=== PATIENT | male | born 2000 | race Hispanic/Latino ===

== ENCOUNTER 2024-06-10 10:22 | Emergency (ER) | payer SELFPAY ==
[~2024-06-10] VITALS: Ht 188 cm; Wt 131.5 kg
--- NOTE | 2024-06-10 10:43 | ERN ---
ED Note History of Present Illness Stated Complaint: CP, REGULO COMPL Chief Complaint: Cough Time Seen by MD: 10:24 Dictation: History of present illness: 24-year-old male with past medical history of diabetes on metformin presented to ED with complaints of cough for past 5 days. Started with runny nose 5 days back associated with cough with expectoration of green sputum. He experienced central chest pain radiating to the right lower ribs region associated with coughing in the beginning-but denies chest pain right now. He also complains of sore throat and 1 episode of vomiting today. He denies shortness of breath, nausea, fever , chest pain, abdominal pain, change in bowel or bladder habits. At the time of presentation he is hemodynamically stable Allergies: Coded Allergies: No Known Allergies (Unverified Allergy, Unknown, 06/10/24) Home Meds Active Scripts Loratadine (Loratadine) 10 Mg Tablet, 1 TAB PO DAILY for allergy symptoms for 10 Days, #10 TAB 0 Refills Prov:DAILY ELDER MD 06/10/24 Fluticasone Propionate (Flonase Nasal [place]) 50 Mcg/Actuation [place], 1 SPRAY NS DAILY PRN for each nostril, #16 GM 0 Refills Prov:DAILY ELDER MD 06/10/24 Past Medical History Past Medical History: No Pertinent History, Diabetes-Type II Surgical History: Other Review of System Dictation REVIEW OF SYSTEMS Positive for cough, sore throat CONSTITUTIONAL: Denies fevers, chills, or night sweats. No unintentional weight loss reported. ENT: No hearing loss, otalgia, otorrhea, rhinitis, rhinorrhea, hoarseness, or sore throat. CARDIOVASCULAR: Denies any exertional angina, dyspnea on exertion, orthopnea, paroxysmal nocturnal dyspnea, palpitations claudication. PULMONARY: Denies any shortness of breath, cough, phlegm / sputum, hemoptysis, pleuritic chest pain. SLEEP: Denies morning headaches, daytime somnolence or napping. Denies difficulty falling asleep, staying asleep, waking from sleep. Denies knowledge of snoring. GASTROINTESTINAL: Denies any type of dysphagia to either liquids or solids. Denies nausea, vomiting, abdominal pain, diarrhea, constipation, blood in stools . NEUROLOGICAL: Denies headache, motor weakness, sensory deficit, vertigo / spinning sensation, gait abnormalities, or tremors. GENITOURINARY: Denies frequency, urgency, nocturia, hematuria or incontinence, low urinary stream, straining to void, urinary intermittency or hesitancy ENDOCRINOLOGY: Denies polyuria, polydipsia, polyphagia or heat / cold intolerance. HEMATOLOGY: Denies thrombophilia / previous clots, or coagulopathy / bleeding disorders. ONCOLOGIC: Denies personal history of malignancy. DERMATOLOGIC: Denies rashes or pruritus. PSYCHIATRIC: Denies any suicidal or homicidal ideation. Denies hallucinations. Initial Vital Sign VS Vital Signs Date Time Temp Pulse Resp B/P (MAP) Pulse Ox O2 Delivery O2 Flow Rate FiO2 06/10/24 10:25 98.4 100 20 125/84 98 0 Physical Exam Dictation PHYSICAL EXAM GENERAL APPEARANCE: Obese body habitus . Awake and alert. Oriented to time, place and person. No acute cardiopulmonary distress. HEENT: Head normocephalic , atraumatic. Sclera anicteric . Pupils are round and reactive. Extraocular movements intact . No conjunctival injection. No nasal congestion. Posterior oropharynx erythematous NECK: Supple. No JVD. No thyromegaly. No submental, submandibular, pre-/postauricular, occipital or supraclavicular lymphadenopathy. No carotid bruits. CHEST: Normal chest expansion. No Telemetry. LUNGS: Coarse breath sounds appreciated while CARDIOVASCULAR: Regular rate and rhythm. S1 and S2 normal. No rubs, murmurs or gallops. ABDOMEN: Soft, nontender, and nondistended. There is no rebound tenderness, voluntary guarding, or rigidity. No hepatosplenomegaly. Bowel sounds normal in all four quadrants . NEUROLOGICAL: Cranial nerves II-XII grossly intact. Motor is 5/5 in bilateral upper and lower extremities . No sensory deficits. EXTREMITIES: No edema, No cyanosis , No clubbing. Good capillary refill. SKIN: No skin breakdown. No rashes or lesions . PSYCHIATRY: Normal affect .No auditory or visual hallucinations. Normal speech. No dysarthria. Results (Laboratory/Radiology) Laboratory/Radiology Laboratory Tests Test 06/10/24 11:04 06/10/24 11:06 White Blood Count 8.9 K/uL (4.8-10.8) Red Blood Count 5.14 MIL/uL (4.50-6.20) Hemoglobin 14.4 g/dL (14.0-18.0) Hematocrit 42.6 % (42-54) Mean Corpuscular Volume 82.9 fL (79-99) Mean Corpuscular Hemoglobin 28.0 pg (27.0-33.0) Mean Corpuscular Hemoglobin Concent 33.8 g/dL (32.0-36.0) Red Cell Distribution Width 11.5 % (11.0-15.5) Platelet Count 216 K/uL (130-400) Mean Platelet Volume 12.0 fL (7.5-10.5) H Immature Granulocyte % (Auto) 0.6 % (0-1) Neutrophils (%) (Auto) 64.2 % (40.0-77.0) Lymphocytes (%) (Auto) 22.1 % (21.0-51.0) Monocytes (%) (Auto) 11.9 % (3.0-13.0) Eosinophils (%) (Auto) 0.9 % (0.0-8.0) Basophils (%) (Auto) 0.3 % (0.0-5.0) Neutrophils # (Auto) 5.7 K/uL (1.8-7.7) Lymphocytes # (Auto) 2.0 K/uL (1.0-4.8) Monocytes # (Auto) 1.1 K/uL (0.1-1.0) H Eosinophils # (Auto) 0.08 K/uL (0.00-0.70) Basophils # (Auto) 0.03 K/uL (0.00-0.20) Absolute Immature Granulocyte (auto 0.05 K/uL (0-1) Nucleated Red Blood Cells 0.0 % (0.0-0.19) Sodium Level 131 mmol/L (136-145) L Potassium Level 3.5 mmol/L (3.5-5.1) Chloride Level 93 mmol/L (101-111) L Carbon Dioxide Level 31 mmol/L (21-32) Blood Urea Nitrogen 9 mg/dL (7-18) Creatinine 0.8 mg/dL (0.5-1.3) Glomerular Filtration Rate Calc 126 mL/min (>90) Random Glucose 409 mg/dL (70-105) *H Total Calcium 9.3 mg/dL (8.5-10.1) Influenza Type A Antigen Negative For Type A Influenza Type B Antigen Negative For Type B Group A Streptococcus Rapid negative (NEGATIVE) X-RAY Comment: PROCEDURE: CXR1VW - CHEST 1VW PORTABLE CHEST RADIOGRAPH INDICATION: cough x 5 days COMPARISON: 03/26/2010 FINDINGS: Shallow inspiration. Heart size is normal. The pulmonary vascularity and lizzy appear normal. No abnormal pulmonary parenchymal opacity or consolidation identified. No significant pleural effusion noted. No pneumothorax detected. IMPRESSION: Shallow inspiration without radiographic evidence for any acute cardiopulmonary process. DICTATED BY: LARA WAHL MD DATE: 06/10/24 1141 ELECTRONICALLY SIGNED BY: LARA WAHL MD DATE: 06/10/24 1144 ED Course ED Course Orders Procedure Category Date Status Time Chest 1vw RAD 06/10/24 Resulted 10:35 Cbc With Differential LAB 06/10/24 Complete 10:35 Dexamethasone 4mg/Ml PHA 06/10/24 Complete 1ml Vial (Dexametha 11:00 Basic Metabolic Panel LAB 06/10/24 Complete 10:35 Influenza Type A & B, LAB 06/10/24 Complete Rapid 10:43 Rapid (Group A Strep) LAB 06/10/24 Complete 10:43 Insulin Regular, PHA 06/10/24 Verified Human 3ml (Humulin R 13:30 Current Medications Medications (Trade) Dose Ordered Sig/Cristian Route PRN Reason Start Time Stop Time Status Last Admin Dose Admin Dexamethasone Sodium Phosphate (dexaMETHasone 4MG/ML 1ML VIAL) 4 mg ONCE ONCE IM 06/10/24 11:00 06/10/24 11:01 DC 06/10/24 11:01 Vital Signs Date Time Temp Pulse Resp B/P (MAP) Pulse Ox O2 Delivery O2 Flow Rate FiO2 06/10/24 10:25 98.4 100 20 125/84 98 0 Medical Decision Making MDM Differential diagnosis : Postviral bronchitis, acute bronchitis, pneumonia, Rationale: Tests considered and ordered secondary to shared decision making include: I will re-evaluate the patient after treatment and diagnostic exams have returned to determine whether they require further testing, can be safely discharged home, or need admission for further treatment and evaluation. Given the social determinants of health affecting care, including literacy, access to medical care, prescription drug management, and [id number] drugs, I will ensure that treatment plans are tailored accordingly. There are no social concerns with this patient. Risk of complication and/or morbidity or mortality of patient management: None Need for hospitalization: Patient does not meet criteria for hospitalization. Need for emergency major/minor surgery: No Prescription drug management Prescriptions will include symptomatic care Medications-Per medication reconciliation Previous outside records reviewed: Old ER visits. Patient's prior external medical records from other ER visits were reviewed by me as indicated. Prior testing and results from previous visits were reviewed. Prior tests were taken into account with medical decision making and resource utilization, independent historian/historians were used to obtain complete medical history. I independently interpreted the test that were performed, results were reviewed by me and considered findings on radiology. Medical management and examination interpretation discussions was done by me with other qualified healthcare professionals as indicated for the patient's care. Revaluation: Labs including CBC and BmP was unremarkable. Chest x-ray showed right-sided peribronchial markings. Oropharynx is congested-most likely postnasal drip causing cough. We will discharge him home on antihistamines. His random blood sugar was 409-uncontrolled diabetes mellitus. He was treated with 5 units of insulin is 1 bolus dose. He is required to follow up with the primary care doctor for adequate blood sugar control. Disposition : Home DX & DISP Disposition: Observation Departure Impression: Primary Impression: Upper respiratory infection, acute Additional Impression: Uncontrolled diabetes mellitus Condition: Stable Scripts Loratadine (Loratadine) 10 Mg Tablet 1 TAB PO DAILY for allergy symptoms for 10 Days, #10 TAB 0 Refills Prov: DAILY ELDER MD 06/10/24 Fluticasone Propionate (Flonase Nasal [place]) 50 Mcg/Actuation [place] 1 SPRAY NS DAILY PRN for each nostril, #16 GM 0 Refills Prov: DAILY ELDER MD 06/10/24 Additional Instructions: Follow-up with primary care provider in 1-2 days Take medications as directed here in the emergency room. It is okay to continue home medications unless otherwise discussed during your visit in the emergency room today. Increase oral hydration. If a wound culture or urine culture was ordered here in the emergency room department, please follow-up with primary care provider and advised them to get reports from our facility. If you had any Pieter wrap/splints that were applied here placed to not remove them until you see your primary care physician. Return to your nearest emergency room if symptoms worsen or if there is no improvement. Call 911 if you need immediate assistance. DAILY ELDER MD Jun 10, 2024 10:43
[2024-06-10] MEDS: dexaMETHasone SOD PHOSPHATE 4 MG/ML 1ML VIAL IM ONE (11:01)
--- NOTE | 2024-06-10 11:44 | HMCIMG ---
PORTABLE CHEST RADIOGRAPH INDICATION: cough x 5 days COMPARISON: 03/26/2010 FINDINGS: Shallow inspiration. Heart size is normal. The pulmonary vascularity and lizzy appear normal. No abnormal pulmonary parenchymal opacity or consolidation identified. No significant pleural effusion noted. No pneumothorax detected. IMPRESSION: Shallow inspiration without radiographic evidence for any acute cardiopulmonary process.
[2024-06-10 11:52] LABS: BASOPHILS # (AUTO) 0.03 K/uL (0.00-0.20); BASOPHILS % (AUTO) 0.3 % (0.0-5.0); EOSINOPHILS # (AUTO) 0.08 K/uL (0.00-0.70); EOSINOPHILS % (AUTO) 0.9 % (0.0-8.0); HEMATOCRIT 42.6 % (42-54); IMMATURE GRANULOCYTE ABSOLUTE 0.05 K/uL (0-1); LYMPHOCYTES % (AUTO) 22.1 % (21.0-51.0); MEAN CORPUSCULAR HGB CONC 33.8 g/dL (32.0-36.0); MEAN CORPUSCULAR VOLUME 82.9 fL (79-99); MONOCYTES # (AUTO) 1.1 K/uL (0.1-1.0); MONOCYTES % (AUTO) 11.9 % (3.0-13.0); NEUTROPHILS # (AUTO) 5.7 K/uL (1.8-7.7); NEUTROPHILS % (AUTO) 64.2 % (40.0-77.0); PLATELET COUNT (AUTO) 216 K/uL (130-400); RED BLOOD CELL COUNT(AUTO) 5.14 MIL/uL (4.50-6.20); RED CELL DISTRIBUTION WIDTH 11.5 % (11.0-15.5); WHITE BLOOD COUNT (AUTO) 8.9 K/uL (4.8-10.8)
[2024-06-10 12:04] LABS: RAPID GROUP A STREP negative (NEGATIVE)
[2024-06-10 12:14] LABS: INFLUENZA TYPE A Negative For Type A (NEGATIVE); INFLUENZA TYPE B Negative For Type B (NEGATIVE)
[2024-06-10 12:42] LABS: CREATININE 0.8 mg/dL (0.5-1.3); POTASSIUM 3.5 mmol/L (3.5-5.1)
[2024-06-10] MEDS ORDERED: LORA10TA7 PO (12:57)
[2024-06-10] MEDS ORDERED: FLUT16H NS (12:57)
[2024-06-10] MEDS: INSULIN humuLIN R 100 UNIT/ML 3ML SQ ONE (13:59)
[2024-06-10 14:20] VITALS: BP 121/87; PULSE 88; RESP 18; TEMP 98.4; O2SAT 98
== END 2024-06-10 14:27 | disposition home or self-care (01) ==
LOC: EDH 10:22
DX: J06.9 Acute upper respiratory infection, unspecified (principal); E11.65 Type 2 diabetes mellitus with hyperglycemia; Z20.822 Contact with and (suspected) exposure to COVID-19; Z79.899 Other long term (current) drug therapy; Z98.890 Other specified postprocedural states
CPT/HCPCS: 99284; 71045; 80048; 85025; 87880; 87804 ×2; 36415; 96372 ×2; J1815; J1100

== ENCOUNTER 2025-01-07 04:31 | Emergency (ER) | payer SELFPAY ==
[~2025-01-07] VITALS: Ht 188 cm; Wt 121.6 kg
[~2025-01-07 04:31] MED LIST: FLUT16H NS; LORA10TA7 PO
--- NOTE | 2025-01-07 04:43 | ERN ---
ED Note History of Present Illness Stated Complaint: C/O "STREP" GETTING WORSE Chief Complaint: Sore Throat Time Seen by MD: 04:36 Dictation: This is a 24-year-old male who presented to the emergency room stating that he has had a strep infection and for the past 1 week it has gotten worse. He was complaining of worsening sore throat and pain on the left side of his neck. He also reported pain in his left ear. The throat pain is radiating to both sides of the neck. He denied any dental work recently. He reports trismus. It was a lso drooling somewhat but denied any stridor. He stated that he has had throat infections before but this has been the worst. Subjective fevers but no high temperature that he could recall. Temperature 99 pulse 136 respirations 20 blood pressure 149/99 with a pulse oximetry of 97% on room air Patient has a known history of diabetes mellitus Allergies: Coded Allergies: No Known Allergies (Unverified Allergy, Unknown, 06/10/24) Home Meds Active Scripts Loratadine (Loratadine) 10 Mg Tablet, 1 TAB PO DAILY for allergy symptoms for 10 Days, #10 TAB 0 Refills Prov:DAILY ELDER MD 06/10/24 Fluticasone Propionate (Flonase Nasal [place]) 50 Mcg/Actuation [place], 1 SPRAY NS DAILY PRN for each nostril, #16 GM 0 Refills Prov:DAILY ELDER MD 06/10/24 Past Medical History Past Medical History: No Pertinent History, Diabetes-Type II Surgical History: Other Family History: Negative RN Note Reviewed/Agreed w/PFSH: Yes Review of System Dictation Constitutional: Negative for fever,chills, and weight loss Eyes: Negative for injury, pain,redness, and discharge ENT: Negative for injury,pain or swelling positive for sore throat, difficulty swallowing Cardiovascular: Negative for chest pain, palpitations, and edema Respiratory: Negative for shortness of breath, cough, and wheezing, Abdomen/GI: Negative for abdominal pain, nausea, vomiting, diarrhea, and constipation Back: Negative for injury and pain : Negative for injury, bleeding and discharge MS/Extremity: Negative for injury and deformity Skin: Negative for rash, and discoloration Neuro: Negative for headache, weakness, numbness, tingling, and seizure Psych: Negative for suicide ideation, homicidal ideation, and hallucinations Initial Vital Sign VS Vital Signs Date Time Temp Pulse Resp B/P (MAP) Pulse Ox O2 Delivery O2 Flow Rate FiO2 01/07/25 04:34 99.3 136 20 149/99 97 Room Air 01/07/25 05:10 0 21 Physical Exam Dictation General: awake, alert, NAD obese Head/Face: Normocephalic, atraumatic Eyes: PERRL, EOMI, vision at baseline ENT: oral cavity hard to visualize completely, TMs clear, trismus noted. Tongue-white patches. I am unable to visualize the posterior oropharynx as the patient is unable to open his mouth Neck: Trachea midline, supple, no nuchal rigidity small lymph nodes in the submandibular area palpable Cardiovascular: Tachycardia normal S1/S2, No MRGs, no JVD Respiratory: CTAB, no respiratory distress, No rales or wheezes Abdomen: Soft, non-tender, non-distended, normal bowel sounds, no guarding or rebound. Skin: Warm, dry, normal turgor, no rash MS/Extremity: Pulses equal, no cyanosis, neurovascular intact, FROM Neuro: COAx4, GCS 15, strength 5/5, CN 2-12 intact, normal cerebellar exam, normal gait, Psych: Normal behavior, mood, and affect normal Extremities-trace edema without any palpable cords, Homans sign is negative Results (Laboratory/Radiology) Laboratory/Radiology Laboratory Tests Test 01/07/25 05:06 01/07/25 06:09 01/07/25 06:35 Influenza Type A Antigen Negative For Type A Influenza Type B Antigen Negative For Type B SARS-CoV-2 Antigen (Rapid) PRESUMPTIVE NEGATIVE Group A Streptococcus Rapid negative (NEGATIVE) White Blood Count 17.8 K/uL (4.8-10.8) H Red Blood Count 5.30 MIL/uL (4.50-6.20) Hemoglobin 15.2 g/dL (14.0-18.0) Hematocrit 44.8 % (42-54) Mean Corpuscular Volume 84.5 fL (79-99) Mean Corpuscular Hemoglobin 28.7 pg (27.0-33.0) Mean Corpuscular Hemoglobin Concent 33.9 g/dL (32.0-36.0) Red Cell Distribution Width 11.7 % (11.0-15.5) Platelet Count 267 K/uL (130-400) Mean Platelet Volume 10.9 fL (7.5-10.5) H Immature Granulocyte % (Auto) 0.5 % (0-1) Neutrophils (%) (Auto) 82.7 % (40.0-77.0) H Lymphocytes (%) (Auto) 7.2 % (21.0-51.0) L Monocytes (%) (Auto) 9.1 % (3.0-13.0) Eosinophils (%) (Auto) 0.2 % (0.0-8.0) Basophils (%) (Auto) 0.3 % (0.0-5.0) Neutrophils # (Auto) 14.7 K/uL (1.8-7.7) H Lymphocytes # (Auto) 1.3 K/uL (1.0-4.8) Monocytes # (Auto) 1.6 K/uL (0.1-1.0) H Eosinophils # (Auto) 0.03 K/uL (0.00-0.70) Basophils # (Auto) 0.05 K/uL (0.00-0.20) Absolute Immature Granulocyte (auto 0.09 K/uL (0-1) Nucleated Red Blood Cells 0.0 % (0.0-0.19) White Cell Morphology Comment See comments Sodium Level 138 mmol/L (136-145) Potassium Level 4.4 mmol/L (3.5-5.1) Chloride Level 99 mmol/L (101-111) L Carbon Dioxide Level 23 mmol/L (21-32) Blood Urea Nitrogen 12 mg/dL (7-18) Creatinine 0.7 mg/dL (0.5-1.3) Glomerular Filtration Rate Calc 131 mL/min (>90) Random Glucose 278 mg/dL (70-105) H Total Calcium 8.9 mg/dL (8.5-10.1) Lactic Acid Level 1.7 mmol/L (0.8-2.5) Labs Reviewed?: Yes CT Scan Comment: [place] [id number] [id number] IMAGING REPORT Signed PATIENT: VENICE WATERS MR#: [id number] : 2000 SEX: M AGE: 24 LOCATION: [facility] ORDER [id number] STATUS: [facility] REPORT#: [id number] SERVICE [id number] REASON: possible retropharyngeal abscess ORDERING PHYSICIAN: ROSA JESSICA MD PROCEDURE: NKSOFTI W - CT NECK SOFT TISS W/CONTRAST EXAM: CT Neck with Intravenous Contrast. CLINICAL HISTORY: Possible retropharyngeal abscess TECHNIQUE: Axial computed tomography images of the neck with intravenous contrast. Sagittal and coronal reformatted images were generated. CONTRAST: None. COMPARISON: None provided. FINDINGS: PHARYNX: Unremarkable appearance of the nasopharynx, oropharynx, and hypopharynx. No pharyngeal mucosal-based mass lesions. LARYNX: Enlarged heterogeneously enhancing left palatine tonsil with an ill-defined hypoenhancing collection measuring 2.7 x 2.2 x 2.4 cm. Resultant mild narrowing of the oropharyngeal airway is noted. Unremarkable epiglottis. RETROPHARYNGEAL SPACE: There is a hypodense non-enhancing collection measuring approximately 7.5 x 3.5 x 0.6 cm ( CC x TR x AP) in the retropharyngeal space, extending from the C2 vertebral level up to the superior endplate of the C6 vertebra, which may represent a retropharyngeal abscess.SALIVARY GLANDS: No salivary gland abnormality is evident. Unremarkable appearance of the parotid, submandibular, and sublingual glands. LYMPH NODES: A few enlarged bilateral cervical level II station lymph nodes, measuring 1.0 cm in short axis on the right side and 1.1 cm in short axis on the left side. THYROID: Unremarkable appearance of the thyroid. No thyroid nodule seen. BONES: No aggressive appearing osseous lesion. No acute osseous abnormality. IMPRESSION: Enlarged heterogeneously enhancing left palatine tonsil with an ill-defined hypoenhancing collection measuring 2.7 x 2.2 x 2.4 cm, reflecting tonsillitis with tonsillar abscess. Resultant mild narrowing of the oropharyngeal airway is noted. Hypodense non-enhancing collection measuring approximately 7.5 x 3.5 x 0.6 cm ( CC x TR x AP) in the retropharyngeal space, extending from the C2 vertebral level up to the superior endplate of the C6 vertebra, may represent a retropharyngeal abscess. Cervical lymphadenopathy /[place] DICTATED BY: ALAN BELL Jr., MD DATE: 01/07/25939 ELECTRONICALLY SIGNED BY: ALAN BELL Jr., MD DATE: 01/07/25939 ED Course ED Course Orders Procedure Category Date Status Time Influenza Type A & B, LAB 01/07/25 Complete Rapid 04:37 Covid19 (Sars Antigen LAB 01/07/25 Complete Rapid) 04:37 Rapid (Group A Strep) LAB 01/07/25 Complete 04:37 Cbc With Differential LAB 01/07/25 Complete 05:52 Basic Metabolic Panel LAB 01/07/25 Complete 05:52 0.9%Nacl 1000ml (Ns PHA 01/07/25 Complete 1000ml) 06:00 Dexamethasone 4mg/Ml PHA 01/07/25 Complete 1ml Vial (Dexametha 06:00 Ketorolac PHA 01/07/25 Complete Tromethamine 30mg/Ml 06:00 Ct Neck Soft Tiss CT 01/07/25 Resulted W/Contrast 05:52 Racepinephrine Hcl PHA 01/07/25 Complete (Racepinephrine Neb S 06:00 Blood Cult MARY 01/07/25 In Process 06:21 Lactic Acid LAB 01/07/25 Complete 06:21 Zosyn 3.375gm+Ns 50ml PHA 01/07/25 Complete (Zosyn 3.375gm+Ns 06:30 Iohexol (Omnipaque) PHA 01/07/25 Complete 06:48 Methylprednisolone PHA 01/07/25 Complete Succ 125mg (Solu-Medr 07:30 Vancomycin 1g/250ml PHA 01/07/25 Complete Kit (Vancomycin 1g/2 09:00 Current Medications Medications (Trade) Dose Ordered Sig/Cristian Route PRN Reason Start Time Stop Time Status Last Admin Dose Admin Dexamethasone Sodium Phosphate (dexaMETHasone 4MG/ML 1ML VIAL) 10 mg ONCE ONCE IV 01/07/25 06:00 01/07/25 06:01 DC 01/07/25 06:12 Epinephrine (Racepinephrine Neb Soln) 0.5ML ONCE ONCE NEB 01/07/25 06:00 01/07/25 06:01 DC 01/07/25 06:12 Iohexol (Omnipaque) 75 ml STK-MED ONCE IV 01/07/25 06:48 10/16/25 06:48 DC Ketorolac Tromethamine (toRADol) 30 mg ONCE ONCE IVP 01/07/25 06:00 01/07/25 06:01 DC 01/07/25 06:12 Methylprednisolone Sodium Succinate (Solu-medROL 125MG) 125 mg ONCE ONCE IVP 01/07/25 07:30 01/07/25 07:31 DC 01/07/25 08:07 Piperacillin Sod/ Tazobactam Sod (Zosyn 3.375gm+NS 50ml) 3.375 gm ONCE ONCE IV 01/07/25 06:30 01/07/25 06:31 DC 01/07/25 06:41 Sodium Chloride 1,000 ml @ 0 mls/hr ONCE ONCE IV 01/07/25 06:00 01/07/25 06:01 DC 01/07/25 06:12 Vancomycin HCl (Vancomycin 1g/ 250ml Kit) 1 gm ONCE ONCE IV 01/07/25 09:00 01/07/25 09:01 DC 01/07/25 09:24 Vital Signs Date Time Temp Pulse Resp B/P (MAP) Pulse Ox O2 Delivery O2 Flow Rate FiO2 01/07/25 09:33 98.6 111 18 132/83 99 Room Air* 0 21 01/07/25 06:15 120 24 01/07/25 05:10 107 19 132/83 98 Room Air* 0 21 01/07/25 04:34 99.3 136 20 149/99 97 Room Air We will perform diagnostic labs, and administer medications according to the patient's complaint. Once the results are available, will review and personally interpreted the labs to rule out any acute life-threatening emergency the trach require immediate intervention and treatment. I will then re-evaluate the patient after treatment and diagnostic exams have return to determine whether the patient requires any further testing, can safely be discharged home or need further admission to hospital for additional treatment and evaluation. Medical Decision Making MDM MDM: Differential diagnosis: Peritonsillar abscess, sepsis, seizures, Rationale: Tests considered and ordered secondary to shared decision making include: labs, ECG and radiology Previous outside records reviewed: Old ER visits. Risk of complication and/or morbidity or mortality of patient management: None Medications-Per medication reconciliation Need for hospitalization: Patient does meet criteria for hospitalization. Need for emergency major/minor surgery: No There are no social concerns with this patient. Prescription drug management Prescriptions will include symptomatic care Patient's prior external medical records from other ER visits were reviewed by me as indicated. Prior testing and results from previous visits were reviewed. Prior tests were taken into account with medical decision making and resource utilization, independent historian/historians were used to obtain complete medical history. I independently interpreted the test that were performed, results were reviewed by me and considered findings on radiology if ordered. Medical management and examination interpretation discussions were had by me with other qualified healthcare professionals as indicated for the patient's care. Differential diagnosis: Influenza, COVID, streptococcal pharyngitis, otitis media, acute viral syndrome, fungal sinusitis. The other serious considerations would be odontogenic infection and abscess, epiglottitis, deep neck soft tissue abscess. This is a 24-year-old male who presented to the emergency room stating that he has had a strep infection and for the past 1 week it has gotten worse. He was complaining of worsening sore throat and pain on the left side of his neck. He also reported pain in his left ear. The throat pain is radiating to both sides of the neck. He denied any dental work recently. He reports trismus. It was also drooling somewhat but denied any stridor. He stated that he has had throat infections before but this has been the worst. Subjective fevers but no high temperature that he could recall. Temperature 99 pulse 136 respirations 20 blood pressure 149/99 with a pulse oximetry of 97% on room air Patient has a known history of diabetes mellitus CT Disclose a peritonsillar abscess white blood cell count elevated, patient was started on IV antibiotics. Patient will be transferred to [facility] ER to ER Dr. Kyle HERNANDEZ MD accepting patient Critical Care Note Comment(s) Critical Care Procedure Note Authorized and Performed by: me Total critical care time: Approximately 36 minutes Due to a high probability of clinically significant, life threatening de terioration, the patient required my highest level of preparedness to intervene emergently and I personally spent this critical care time directly and personally managing the patient. This critical care time included obtaining a history; examining the patient; pulse oximetry; ordering and review of studies; arranging urgent treatment with development of a management plan; evaluation of patient's response to treatment; frequent reassessment; and, discussions with other providers. This critical care time was performed to assess and manage the high probability of imminent, life-threatening deterioration that could result in multi-organ failure. It was exclusive of separately billable procedures and treating other patients and teaching time. Please see MDM section and the rest of the note for further information on patient assessment and treatment. DX & DISP Disposition: Transfer Decision to Admit Time: 10:25 Departure Impression: Primary Impression: Sepsis Additional Impression: Peritonsillar abscess Condition: Stable Referrals: SELF,REFERRAL (PCP) ROSA JESSICA MD Jan 07, 2025 04:43 KARYN EARLY MD Jan 07, 2025 08:57
[2025-01-07 05:26] LABS: RAPID GROUP A STREP negative (NEGATIVE)
[2025-01-07 05:35] LABS: COVID19 (SARS ANTIGEN RAPID) PRESUMPTIVE NEGATIVE (NEGATIVE); INFLUENZA TYPE A Negative For Type A (NEGATIVE); INFLUENZA TYPE B Negative For Type B (NEGATIVE)
[2025-01-07] MEDS: 0.9%NACL 1000ML 1,000 ML IV ONE (06:12)
[2025-01-07] MEDS: RACEPINEPHRINE HCL 2.25% 0.5 ML NEB SOLN NEB ONE (06:12)
[2025-01-07 06:15] VITALS: PULSE 120; RESP 24
[2025-01-07 06:16] LABS: IMMATURE GRANULOCYTE ABSOLUTE 0.09 K/uL (0-1); NUCLEATED RED BLOOD CELLS 0.0 % (0.0-0.19); PLATELET COUNT (AUTO) 267 K/uL (130-400); RED BLOOD CELL COUNT(AUTO) 5.30 MIL/uL (4.50-6.20); RED CELL DISTRIBUTION WIDTH 11.7 % (11.0-15.5); WHITE BLOOD COUNT (AUTO) 17.8 K/uL (4.8-10.8)
[2025-01-07 06:27] LABS: CREATININE 0.7 mg/dL (0.5-1.3); GLOMERULAR FILTR. RATE CALC 131.0 mL/min (>90); GLUCOSE,RANDOM 278.0 mg/dL (70-105); SODIUM SERUM 138.0 mmol/L (136-145); UREA NITROGEN, BLOOD 12.0 mg/dL (7-18)
[2025-01-07] MEDS: ZOSYN 3.375GM +NS 50ML IV ONE (06:41)
[2025-01-07] MEDS ORDERED: IOHEXOL-350 75 ML VIAL IV ONE (06:48)
--- NOTE | 2025-01-07 08:41 | HMCIMG ---
EXAM: CT Neck with Intravenous Contrast. CLINICAL HISTORY: Possible retropharyngeal abscess TECHNIQUE: Axial computed tomography images of the neck with intravenous contrast. Sagittal and coronal reformatted images were generated. CONTRAST: None. COMPARISON: None provided. FINDINGS: PHARYNX: Unremarkable appearance of the nasopharynx, oropharynx, and hypopharynx. No pharyngeal mucosal-based mass lesions. LARYNX: Enlarged heterogeneously enhancing left palatine tonsil with an ill-defined hypoenhancing collection measuring 2.7 x 2.2 x 2.4 cm. Resultant mild narrowing of the oropharyngeal airway is noted. Unremarkable epiglottis. RETROPHARYNGEAL SPACE: There is a hypodense non-enhancing collection measuring approximately 7.5 x 3.5 x 0.6 cm ( CC x TR x AP) in the retropharyngeal space, extending from the C2 vertebral level up to the superior endplate of the C6 vertebra, which may represent a retropharyngeal abscess.SALIVARY GLANDS: No salivary gland abnormality is evident. Unremarkable appearance of the parotid, submandibular, and sublingual glands. LYMPH NODES: A few enlarged bilateral cervical level II station lymph nodes, measuring 1.0 cm in short axis on the right side and 1.1 cm in short axis on the left side. THYROID: Unremarkable appearance of the thyroid. No thyroid nodule seen. BONES: No aggressive appearing osseous lesion. No acute osseous abnormality. IMPRESSION: Enlarged heterogeneously enhancing left palatine tonsil with an ill-defined hypoenhancing collection measuring 2.7 x 2.2 x 2.4 cm, reflecting tonsillitis with tonsillar abscess. Resultant mild narrowing of the oropharyngeal airway is noted. Hypodense non-enhancing collection measuring approximately 7.5 x 3.5 x 0.6 cm ( CC x TR x AP) in the retropharyngeal space, extending from the C2 vertebral level up to the superior endplate of the C6 vertebra, may represent a retropharyngeal abscess. Cervical lymphadenopathy /[place]
[2025-01-07] MEDS: VANCOMYCIN KIT 1 GM/250 ML IV.KIT IV ONE (09:24)
--- NOTE | 2025-01-07 10:13 | NUR ---
PER [facility] ON CALLED FOR TRANSFER , PENDING [employer] REPAIRER. PT AND FAMILY AWARE.
--- NOTE | 2025-01-07 10:39 | NUR ---
REPORT GIVEN TO LETICIA GRIFFITH CHARGE NURSE, PT IV INTACT, CURRNTLY WITH VANCOMYCIN, PT VITALS WNL NO C/O PAIN. PENDING FORM SETTER FROM EMS.
[2025-01-07 10:54] VITALS: BP 133/95; PULSE 110; RESP 18; TEMP 98.6; O2SAT 97
== END 2025-01-07 09:00 | disposition home or self-care (01) ==
LOC: EDH 04:31
DX: A41.9 Sepsis, unspecified organism (principal); J36 Peritonsillar abscess; E11.9 Type 2 diabetes mellitus without complications; Z79.899 Other long term (current) drug therapy; Z20.822 Contact with and (suspected) exposure to COVID-19
CPT/HCPCS: 99291; 96374; 96375; 70491; 87426; 80048; 85025; 87040 ×2; 87880; 87804 ×2; 83605; 36415; 94640; J1100; J1885; J2919; J7030; J2543; J3373; Q9967